=== PATIENT | female | born 1990 | race Two or more races ===

== ENCOUNTER → 2017-08-26 | Outpatient (CLI) | payer OTHER ==
[~2017-08-26] VITALS: Ht 152.4 cm; Wt 81.2 kg
[~2017-08-26] MED LIST: SEPTRA DS PO; URETRON DS1 TAB PO
== END | disposition home or self-care (01) ==
LOC: PPHC 16:01
DX: Z00.00 Encounter for general adult medical examination without abnormal findings (principal)

== ENCOUNTER 2017-08-27 06:56 | Outpatient (CLI) | payer OTHER | END 2017-08-27 07:00 | disposition home or self-care (01) | LOC: LAB 06:56 | DX: Z00.00 Encounter for general adult medical examination without abnormal findings (principal); J11.1 Influenza due to unidentified influenza virus with other respiratory manifestations; R82.79 Other abnormal findings on microbiological examination of urine ==

== ENCOUNTER → 2017-11-23 | Emergency (ER) | payer OTHER ==
[~2017-11-23] VITALS: Ht 162.6 cm; Wt 81.6 kg
[~2017-11-23] MED LIST changes: +PEPCID40 MG PO; +ZOFRAN ODT4 MG PO
== END | disposition home or self-care (01) ==
LOC: ER 19:28
DX: K52.9 Noninfective gastroenteritis and colitis, unspecified (principal)

== ENCOUNTER 2019-05-17 06:48 | Outpatient (CLI) | payer OTHER | END 2019-05-17 06:59 | disposition home or self-care (01) | LOC: LAB 06:48 | DX: E78.49 Other hyperlipidemia (principal); Z00.00 Encounter for general adult medical examination without abnormal findings; E55.9 Vitamin D deficiency, unspecified; R42 Dizziness and giddiness; Z11.3 Encounter for screening for infections with a predominantly sexual mode of transmission; Z11.4 Encounter for screening for human immunodeficiency virus [HIV] ==

== ENCOUNTER 2019-12-16 07:46 | Emergency (ER) | payer OTHER ==
[~2019-12-16] VITALS: Ht 162.6 cm; Wt 70.3 kg
== END 2019-12-16 12:00 | disposition home or self-care (01) ==
LOC: ER 07:46
DX: K59.09 Other constipation (principal)

== ENCOUNTER → 2020-06-22 | Outpatient (CLI) | payer OTHER | END | disposition home or self-care (01) | LOC: PPH VACUNA 14:31 | DX: Z23 Encounter for immunization (principal) ==

== ENCOUNTER 2020-06-27 16:33 | Outpatient (CLI) | payer OTHER | END 2020-06-27 18:00 | disposition home or self-care (01) | LOC: PPH VACUNA 16:33 | DX: Z23 Encounter for immunization (principal) ==

== ENCOUNTER → 2021-02-15 11:17 | Outpatient (CLI) | payer OTHER | END | disposition home or self-care (01) | LOC: LAB 11:17 | PROVIDERS: ATTEND General Practice | DX: N39.0 Urinary tract infection, site not specified (principal); Z13.89 Encounter for screening for other disorder; Z01.812 Encounter for preprocedural laboratory examination ==